=== PATIENT | male | born 1955 | race Caucasian/White ===

== ENCOUNTER 2019-07-15 17:59 | Observation (INO) ==
[2019-07-15 18:35] LABS: Basophils % 0.3 %; Eosinophils # 0.2 K/mcL (0.0-0.6); Eosinophils % 1.8 %; Hematocrit 33.5 % (37.5-50.1); Hemoglobin 10.7 g/dL (12.9-16.9); Immature Granulocytes % 0.4 % (0-4); Lymphocytes # 1.3 K/mcL (0.6-4.6); Lymphocytes % 10.8 %; Mean Corpuscular HGB Conc 31.9 g/dL (31.6-35.5); Mean Corpuscular Hemoglobin 28.4 pg (28.0-33.3); Mean Corpuscular Volume 88.9 fL (83.0-100.0); Mean Platelet Volume 10.5 fL (9.4-12.4); Monocytes # 0.9 K/mcL (0.0-1.3); Monocytes % 7.7 %; Neutrophils # 9.4 K/mcL (1.6-8.9); Platelet Count 263 K/mcL (140-400); Red Blood Count 3.77 M/mcL (4.19-5.50); Red Cell Distribution Width 14.6 % (11.5-14.5); White Blood Count 11.8 K/mcL (4.3-11.1)
[2019-07-15 19:28] LABS: BUN/Creatinine Ratio 17 (6-26); Blood Urea Nitrogen 18 mg/dL (8-23); Calcium 8.6 mg/dL (8.6-10.3); Carbon Dioxide 26 mEq/L (23-29); Chloride 103 mEq/L (98-107); Glucose 108 mg/dL (70-105); Osmolality,Calculated 284 (280-300); Sodium 136 mEq/L (136-145); Troponin I 0.07 ng/mL (< 0.04); eGFR For African Americans > 60 (> 60); eGFR For Non-African Americans > 60 (> 60)
[2019-07-15] MEDS ORDERED: Furosemide 40 MG/4 ML VIAL IVP ONE (19:29)
[2019-07-15] MEDS ORDERED: Aspirin 81 MG TAB.CHEW PO ONE (19:29)
[2019-07-15] MEDS ORDERED: Acetaminophen 325 MG TABLET PO PRN (22:10)
[2019-07-15] MEDS ORDERED: GuaiFENesin Liq 200 MG/10 ML UDC PO PRN (22:10)
[2019-07-16] MEDS: Ipratropium/Albuterol Neb 3 ML IH SCH ×3 (00:26→07:27)
[2019-07-16] MEDS ORDERED: *HR* Heparin 5,000 UNIT/ML VIAL SQ SCH (06:00)
[2019-07-16 07:27] VITALS: BP 118/61
[2019-07-16] MEDS ORDERED: Lisinopril 20 MG TABLET PO SCH (09:00)
[2019-07-16] MEDS ORDERED: Furosemide 40 MG/4 ML VIAL IVP SCH (09:00)
[2019-07-16] MEDS ORDERED: Aspirin 325 MG TABLET PO SCH (09:00)
[2019-07-16] MEDS ORDERED: Budesonide/Formoterol 80/4.5 1 PUFF INH IH SCH (10:00)
== END 2019-07-16 14:02 | disposition home or self-care (01) ==
LOC: 2NENU 17:59 → EMEROOARM 17:59 → SUATTDRO 21:20 → 2NENU 21:59
PROVIDERS: ADMIT Internal Medicine; ATTEND Internal Medicine